=== PATIENT | female | born 1990 | race Caucasian/White ===

== ENCOUNTER 2019-03-28 22:15 | Inpatient (IN) | payer BC ==
[2019-03-28] MEDS ORDERED: ELECTROLYTE-148 SOLN 500 ML IV ONE (23:00)
[2019-03-29 00:12] LABS: BASO % 0.2 % (0-2.0); EOS % 0.9 % (0-4.5); HEMATOCRIT 38.6 % (32.4-45.2); HEMOGLOBIN 12.6 GM/dL (10.7-15.3); LYMPH % 26.2 % (8-40); MCH 29.3 pg (25.7-33.7); MCHC 32.5 g/dl (32.0-36.0); MEAN CELL VOLUME 90.3 fl (80-96); MEAN PLT VOLUME 13.1 fl (7.5-11.1); MONO % 7.7 % (3.8-10.2); PLATELET COUNT 227 K/MM3 (134-434); RBC 4.28 M/mm3 (3.60-5.2); RDW 13.1 % (11.6-15.6); WHITE BLOOD COUNT 11.9 K/mm3 (4.0-10.0)
[2019-03-29] MEDS ORDERED: BUTORPHANOL TARTRATE 1 MG/ML VIAL ONE ×2 (00:36)
[2019-03-29] MEDS ORDERED: PROMETHAZINE HCL 25 MG/1 ML VIAL ONE (00:36)
[2019-03-29 00:37] LABS: BLOOD UREA NITROGEN 16.3 mg/dL (7-18); CALCIUM 9.2 mg/dL (8.5-10.1); CREATININE 0.8 mg/dL (0.55-1.3); POTASSIUM 4.4 mmol/L (3.5-5.1); URIC ACID 6.8 mg/dL (2.6-7.2)
[2019-03-29 00:41] LABS: RETICULOCYTES 2.1 % (0.5-1.5)
[2019-03-29] MEDS ORDERED: OXYTOCIN 20 UNITS in 0.9% NS 20 UNIT/1,000 ML INFUS.BAG IV ONE (01:38)
[2019-03-29] MEDS ORDERED: LIDOCAINE HCL 1% PRESERVATIVE FREE - 30ML VIAL ONE (01:39)
[2019-03-29 02:11] LABS: GAMMA GLUTAMYL TRANSPEPTIDASE 10 U/L (5-85); SGOT/AST 13 U/L (15-37); SGPT/ALT 12 U/L (13-61)
[2019-03-29 02:18] LABS: INR 0.89 (0.83-1.09); PROTHROMBIN TIME (PATIENT) 10.5 SEC (9.7-13.0)
[2019-03-29] MEDS: OXYTOCIN 20 UNITS in 0.9% NS 20 UNIT/1,000 ML INFUS.BAG IV SCH ×2 (02:20→07:30)
--- NOTE | 2019-03-29 02:29 | HP ---
Past Medical History - Admission History of Present Illness: 28 yo @ 37 3/7 wks by first trimester ultrasound, EDC 04/15/2019 complicated by: 1. Obesity - Starting BMI 36.6 Early GCT 109, Second trimester GCT 111 29 lb wt gain Most recent ultrasound: 03/24/2019, EFW 2375 g 5lb 4oz (7%ile) 2. Labile BPs on admission, mild elevation starting at 35 wks (130s/80s) Patient presents with chief complaint of leakage of fluid at 2130 and contractions starting at 2300. Limitations to Obtaining History: No Limitations - Past Medical History Cardiovascular: No: HTN Pulmonary: No: Asthma Gastrointestinal: No: GERD ...: 2 ...Para: 0 ...EDC by Son[facility]: 04/15/19 Heme/Onc: No: Anemia - Past Surgical History Past Surgical History: Yes: None Hx Myomectomy: No Hx Transabdominal Cerclage: No - Smoking History Smoking history: Never smoked - Alcohol/Substance Use Hx Alcohol Use: No History of Substance Use: reports: None Home Medications - Allergies Allergies/Adverse Reactions: Allergies Allergy/AdvReac Type Severity Reaction Status Date / Time No Known Allergies Allergy Verified 03/29/19 01:30 - Home Medications Home Medications: Ambulatory Orders Pepcid Complete Tablet Chew 10 mg PO 5XD 03/28/19 Gummies 1 tab PO DAILY 03/28/19 Review of Systems - Review of Systems Constitutional: reports: No Symptoms Cardiovascular: reports: No Symptoms Respiratory: reports: No Symptoms Genitourinary: reports: No Symptoms Musculoskeletal: reports: No Symptoms Endocrine: reports: No Symptoms Psychiatric: reports: No Symptoms Physical Exam - Maternity Vital Signs: Vital Signs Temperature 98.7 F 03/29/19 01:21 Pulse Rate 78 03/29/19 01:21 Respiratory Rate 20 03/29/19 01:21 Blood Pressure 144/88 03/29/19 01:21 O2 Sat by Pulse Oximetry (%) Constitutional: Yes: Well Nourished, No Distress, Calm Cardiovascular: Yes: Regular Rate and Rhythm Lungs: Clear to auscultation - Abdominal Exam/OB Number of Fetuses: Single Presentation: Vertex Contractions: Yes Regularity: Regular Accelerations: Non-Uniform - Vaginal Exam/OB Vaginal Bleediing: No - Physical Exam Edema: No Psychiatric: Yes: Alert, Oriented - Labs Lab Results: CBC, BMP 03/28/19 23:35 03/28/19 23:01 PNL: B positive, antibody negative, RPR NR; HIV neg x 2; HBs Ag neg; HCV neg; GCT (early) 109; GCT 111; GBS neg Hemorrhage Risk Assessment - Risk Factors Medium Risk Factors: Yes: Obesity (BMI >40), None High Risk Factors: Yes: None Risk Score: 2 Risk Level: High Risk Assessment/Plan 28 yo @ 37+ wks, SROM, active labor 1. Admit to L&D 2. Consents reviewed and signed 3. Routine labs collected and sent 4. GBS neg 5. Category I FHT 6. Patient declines offer for pain medication at this time; will offer upon patient's request 7. Labile BPs, PEC labs ordered 8. Will proceed with expectant management
--- NOTE | 2019-03-29 02:34 | PN ---
Delivery - Delivery Vaginal Delivery: No Problems Episiotomy/Laceration: 1st degree EBL (cc): 300 Delivery, Single - Stages of Labor Date 1st Stage Initiatied: 03/28/19 Time 1st Stage Initiated: 23:00 Date 2nd Stage Initiated: 03/29/19 Time 2nd Stage Initiated: 01:30 Date of Delivery: 03/29/19 Time of Delivery: 02:11 Date Placenta Delivered: 03/29/19 Time Placenta Delivered: 02:20 Placenta: Yes: Spontaneous - Condition of Gender: Male Position: Right, OA Total Hours ROM (Hrs/Mins): 4 hours 50 minutes - 1 Minute Total Score: 9 5 Minutes Total Score: 9 - Feeding Plan Initial Plan: Exclusive throughout hospitalization Remarks - Remarks Remarks: Patient progressed to fully dilated and at 2:11 via delivered a viable male in JACEY position, APGARs 9,9. Weight and length unknown at this time. Head delivered spontaneously, nuchal cord noted and reduced followed by shoulders, right compound hand and body without difficulty. Infant with spontaneous cry and placed on mother's abdomen. Nose and mouth was bulb suctioned. Cord was clamped and cut. Perineum and vagina examined, a first degree laceration was noted and repaired in the usual fashion. Placenta was delivered spontaneously and intact. 20 units of pitocin in 1 L IVF was given. All counts correct x 2. Mother and stable in LDR. EBL 300cc.
[2019-03-29] MEDS ORDERED: WITCH HAZEL 50% (TUCKS) 40 PAD/JAR PAD TP PRN (03:01)
[2019-03-29] MEDS ORDERED: METHYLERGONOVINE MALEATE 0.2 MG/1 ML AMP IM PRN (03:01)
[2019-03-29] MEDS ORDERED: BENZOCAINE 20% 57 GM BOTTLE TP PRN (03:01)
[2019-03-29] MEDS ORDERED: BENZOCAINE 28 GM HEMORRHOIDAL OINTMENT TP PRN (03:01)
[2019-03-29] MEDS ORDERED: BISACODYL 10 MG SUPP.RECT RC PRN (03:01)
[2019-03-29] MEDS ORDERED: PROMETHAZINE HCL 25 MG/1 ML VIAL IVPB ONE (04:15)
[2019-03-29] MEDS ORDERED: BUTORPHANOL TARTRATE 1 MG/ML VIAL IVPB ONE (04:15)
[2019-03-29] MEDS: FERROUS SO4 325 MG TABLET (FP) PO SCH ×3 (08:35→17:23)
[2019-03-29] MEDS: PRENATAL VITAMINS W/ FOLIC ACID TABLET (FP) PO SCH (10:14)
[2019-03-29] MEDS: ACETAMINOPHEN 325 MG TABLET (FP) PO PRN (21:41)
[2019-03-29] MEDS: IBUPROFEN 600 MG TABLET (FP) PO PRN (21:42)
[2019-03-30] MEDS: OXYTOCIN 20 UNITS in 0.9% NS 20 UNIT/1,000 ML INFUS.BAG IV SCH (03:36)
[2019-03-30] MEDS: ELECTROLYTE-148 SOLN 1,000 ML IV SCH (03:36)
--- NOTE | 2019-03-30 07:13 | PN ---
Post Progress Note - Subjective Subjective: Patient without acute complaints. Denies headache, change in vision, right upper quadrant pain. Reports tolerating oral intake without nausea or vomiting. Ambulating without dizziness. Denies fevers or chills. Pain well controlled with oral pain medication. Passing flatus. Post Day: 1 Type of Delivery: Vital Signs: Vital Signs Temperature 98.2 F 03/30/19 02:00 Pulse Rate 73 03/30/19 02:00 Respiratory Rate 18 03/30/19 02:00 Blood Pressure 131/70 03/30/19 02:00 O2 Sat by Pulse Oximetry (%) 100 03/29/19 03:30 Breast Exam: Yes: Soft Uterus: Yes: Fundus Firm, Fundus below umbilicus Abdomen/GI: Yes: Abdomen soft Lochia: Yes: Serosa Lochia, amount: Moderate Extremities: Yes: Edema Perineum: Yes: Laceration Activity: Ambulating - Labs Labs: CBC WBC 11.9 K/mm3 (4.0-10.0) H 03/28/19 23:01 RBC 4.28 M/mm3 (3.60-5.2) 03/28/19 23:01 Hgb 12.6 GM/dL (10.7-15.3) 03/28/19 23:01 Hct 38.6 % (32.4-45.2) 03/28/19 23:01 MCV 90.3 fl (80-96) 03/28/19 23:01 MCH 29.3 pg (25.7-33.7) 03/28/19 23:01 MCHC 32.5 g/dl (32.0-36.0) 03/28/19 23:01 RDW 13.1 % (11.6-15.6) 03/28/19 23:01 Plt Count 223 K/MM3 (134-434) 03/28/19 23:35 MPV 13.1 fl (7.5-11.1) H 03/28/19 23:01 Absolute Neuts (auto) 7.8 K/mm3 (1.5-8.0) 03/28/19 23:01 Neutrophils % 65.0 % (42.8-82.8) 03/28/19 23:01 Lymphocytes % 26.2 % (8-40) 03/28/19 23:01 Monocytes % 7.7 % (3.8-10.2) 03/28/19 23:01 Eosinophils % 0.9 % (0-4.5) 03/28/19 23:01 Basophils % 0.2 % (0-2.0) 03/28/19 23:01 Nucleated RBC % 0 % (0-0) 03/28/19 23:01 Retic Count 2.10 % (0.5-1.5) H 03/28/19 23:35 Haptoglobin 163 mg/dL (33-278) 03/28/19 07:03 Assessment/Plan 28 yo PPD # 1 s/p , afebrile, vss, doing well 1. Continue routine care. 2. Follow up AM CBC 3. Rh positive status, no rhogam indicated. 4. Encourage ambulation 5. Continue oral pain medication 6. Labile BPs intrapartum, neg HELLP labs Will continue to monitor 7. Anticipate discharge home day #2
[2019-03-30] MEDS: FERROUS SO4 325 MG TABLET (FP) PO SCH ×3 (08:00→17:18)
[2019-03-30 09:32] LABS: BASO % 0.3 % (0-2.0); EOS % 1.7 % (0-4.5); HEMATOCRIT 34.1 % (32.4-45.2); HEMOGLOBIN 11.3 GM/dL (10.7-15.3); LYMPH % 23.1 % (8-40); MCH 29.8 pg (25.7-33.7); MCHC 33.3 g/dl (32.0-36.0); MEAN CELL VOLUME 89.7 fl (80-96); MEAN PLT VOLUME 12.2 fl (7.5-11.1); MONO % 4.3 % (3.8-10.2); NEUT % 70.6 % (42.8-82.8); PLATELET COUNT 196 K/MM3 (134-434); RDW 13.2 % (11.6-15.6); WHITE BLOOD COUNT 11.8 K/mm3 (4.0-10.0)
[2019-03-30] MEDS: PRENATAL VITAMINS W/ FOLIC ACID TABLET (FP) PO SCH (10:29)
[2019-03-30] MEDS: IBUPROFEN 600 MG TABLET (FP) PO PRN ×2 (11:47→21:04)
[2019-03-30] MEDS: ACETAMINOPHEN 325 MG TABLET (FP) PO PRN ×2 (11:48→21:03)
[2019-03-30] MEDS ORDERED: SENNOSIDES/DOCUSATE COMBO (SENNA PLUS) TABLET (UD) PO PRN (22:00)
[2019-03-31] MEDS: FERROUS SO4 325 MG TABLET (FP) PO SCH ×2 (08:53→12:40)
[2019-03-31] MEDS: PRENATAL VITAMINS W/ FOLIC ACID TABLET (FP) PO SCH (09:51)
[2019-03-31 10:24] VITALS: BP 128/88; PULSE 74; TEMP 98.1
--- NOTE | 2019-03-31 12:40 | PN ---
Post Progress Note - Subjective Subjective: Patient without acute complaints. Reports tolerating oral intake without nausea or vomiting. Ambulating without dizziness. Denies fevers or chills. Pain well controlled with oral pain medication. Pumping, no issues. Passing flatus. Post Day: 2 Type of Delivery: Vital Signs: Vital Signs Temperature 98.1 F 03/31/19 10:00 Pulse Rate 74 03/31/19 10:00 Respiratory Rate 18 03/31/19 10:00 Blood Pressure 128/88 03/31/19 10:00 O2 Sat by Pulse Oximetry (%) 100 03/29/19 03:30 Breast Exam: Yes: Soft Uterus: Yes: Fundus Firm Abdomen/GI: Yes: Abdomen soft, Passing flatus, Tolerating PO. No: Abdominal Distention, Tender Lochia: Yes: Rubra Lochia, amount: Moderate Extremities: Yes: Calves non-tender, Edema (trace) Activity: Ambulating - Labs Labs: CBC WBC 11.8 K/mm3 (4.0-10.0) H 03/30/19 08:55 RBC 3.80 M/mm3 (3.60-5.2) 03/30/19 08:55 Hgb 11.3 GM/dL (10.7-15.3) 03/30/19 08:55 Hct 34.1 % (32.4-45.2) 03/30/19 08:55 MCV 89.7 fl (80-96) 03/30/19 08:55 MCH 29.8 pg (25.7-33.7) 03/30/19 08:55 MCHC 33.3 g/dl (32.0-36.0) 03/30/19 08:55 RDW 13.2 % (11.6-15.6) 03/30/19 08:55 Plt Count 196 K/MM3 (134-434) 03/30/19 08:55 MPV 12.2 fl (7.5-11.1) H 03/30/19 08:55 Absolute Neuts (auto) 8.3 K/mm3 (1.5-8.0) H 03/30/19 08:55 Neutrophils % 70.6 % (42.8-82.8) 03/30/19 08:55 Lymphocytes % 23.1 % (8-40) 03/30/19 08:55 Monocytes % 4.3 % (3.8-10.2) 03/30/19 08:55 Eosinophils % 1.7 % (0-4.5) D 03/30/19 08:55 Basophils % 0.3 % (0-2.0) 03/30/19 08:55 Nucleated RBC % 0 % (0-0) 03/30/19 08:55 Retic Count 2.10 % (0.5-1.5) H 03/28/19 23:35 Haptoglobin 163 mg/dL (33-278) 03/28/19 07:03 Assessment/Plan 28 yo PPD # 2 s/p , afebrile, vss, doing well 1. Patient stable for discharge home today. 2. Patient encouraged to contact MD for: - Severe pain not controlled by oral pain medication - Fevers or chills - Nausea or vomiting, intolerance of oral intake 3. Patient to follow up in office in 4-6 weeks for visit
--- NOTE | 2019-03-31 12:43 | DS ---
Physical Exam-CARDIAC CATHETERIZATION TECHNICIAN Vital Signs: Vital Signs Temperature 98.1 F 03/31/19 10:00 Pulse Rate 74 03/31/19 10:00 Respiratory Rate 18 03/31/19 10:00 Blood Pressure 128/88 03/31/19 10:00 O2 Sat by Pulse Oximetry (%) 100 03/29/19 03:30 Labs: CBC, BMP 03/30/19 08:55 03/28/19 23:01 Delivery - Delivery Vaginal Delivery: No Problems Type of Anesthesia: Local Episiotomy/Laceration: 1st degree EBL (cc): 300 Delivery, Single - Stages of Labor Date 1st Stage Initiatied: 03/28/19 Time 1st Stage Initiated: 23:00 Date 2nd Stage Initiated: 03/29/19 Time 2nd Stage Initiated: Date of Delivery: 03/29/19 Time of Delivery: 02:11 Time Placenta Delivered: 02:20 Placenta: Yes: Spontaneous - 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 She fulfilled all criteria for discharge PPD #2 Condition: Good - Instructions Diet, Activity, Other Instructions: RTO 4-6 wks for visit Physical activity Resume your normal everyday activity as tolerated no heavy lifting or exercise until seen by your surgeon. You may walk unlimited john of and climb stairs. You may resume driving the car when you feel safe and comfortable behind the wheel. No sexual activity as instructed. Diet There are no dietary restrictions. Eat healthy, high-fiber foods. Drink 6 to 8 glasses of liquid each day. This will assist in keeping your bowels are regular. Pain management You may take Tylenol or acetaminophen or Ibuprofen (for example, Motrin, Advil etc.) for moderate to severe pain. Call MD for any of the following: Severe pain not relieved by medication Fever of 101 or higher Excessive bleeding or drainage on dressing Inability to urinate Referrals: Deric Torres MD [Staff Physician] - Disposition: HOME - Home Medications Comprehensive Discharge Medication List: Ambulatory Orders Pepcid Complete Tablet Chew 10 mg PO 5XD 03/28/19 Gummies 1 tab PO DAILY 03/28/19 Prescription Drug Monitoring Program (I-STOP) results: I-STOP not reviewed
== END 2019-03-31 13:00 | disposition home or self-care (01) | DRG 807 ==
LOC: JDEL 22:15 → JLDR 23:00 → J3W 03-29 04:51
PROVIDERS: ADMIT Obstetrics & Gynecology; ATTEND Obstetrics & Gynecology
PROC: 10E0XZZ Delivery of Products of Conception, External Approach (ICD-10-PCS; principal; 2019-03-29)
PROC: 0HQ9XZZ Repair Perineum Skin, External Approach (ICD-10-PCS; 2019-03-29)
PROC: 0W8NXZZ Division of Female Perineum, External Approach (ICD-10-PCS; 2019-03-29)
DX: O70.0 First degree perineal laceration during delivery (principal); Z37.0 Single live birth; O99.213 Obesity complicating pregnancy, third trimester; Z3A.37 37 weeks gestation of pregnancy
CPT/HCPCS: 36415; 59409; 80048; 82977; 83010; 84450; 84460; 84550; 85025; 85032; 85044; 85610; 85730; 86593; 86850; 86900; 86901